=== PATIENT | female | born 1930 | race Caucasian/White ===

== ENCOUNTER 2017-05-08 13:38 | Inpatient (IN) | payer MEDICARE ==
[~2017-05-08] VITALS: Ht 157.5 cm; Wt 60.5 kg
--- NOTE | ~2017-05-08 | DS ---
PATIENT:MICHELLE ROBLES :34 MEDICAL RECORD: [id number] DISCHARGE SUMMARY ADMISSION DATE: 05/09/17 DISCHARGE DATE: 05/22/17 DATE OF ADMISSION: 05/09/2017 DATE OF DISCHARGE: 05/22/2017 HISTORY: First [facility] admission for this 86-year-old white female. She was transferred from [facility]. Originally, she had been admitted with respiratory infection, but began to exhibit disorientation and confusion. At the time of presentation, she showed global memory impairment and was oriented only to person. For further details, please see previously dictated history. COURSE IN THE HOSPITAL: The patient was seen in consultation by Dr. Joy. Dr. Joy noted the presence of hypertension, coronary artery disease, hypothyroidism, gastroesophageal reflux disease, diverticulosis, gout, degenerative joint disease, and vitamin B12 deficiency. MEDICATIONS: The patient was started on perphenazine 2 mg at bedtime for control of her agitation. She was also started on Aricept 5 mg at bedtime. She was also maintained on her nonpsychiatric medications. She was started on Megace 40 mg daily for appetite improvement. The patient showed gradual improvement in behavior, but remained confused. Decision was made to have the patient transferred to [facility]. She was discharged in stable condition. 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 AXIS II: No diagnosis. AXIS III: Hypothyroidism, gout, hypertension, coronary artery disease, vitamin B12 and folate deficiencies, and degenerative joint disease. AXIS IV: Moderate. AXIS V: 40. PLAN: 1. The patient is discharged on current medications. 2. Diet and activities as tolerated. 3. Follow up through [facility] physician. TRANSINT:[id number] Voice Confirmation ID: [id number] DOCUMENT ID: [id number] DEE NORMAN III, MD at 1341 CC: [id number] DICTATION DATE: 05/23/17 1219 HEALTHCARE CONSULTANT: 05/23/17 1228 DIS IN 05/22/[address] [id number]
--- NOTE | ~2017-05-08 | PN ---
PATIENT:MICHELLE ROBLES MEDICAL RECORD: [id number] LOCATION:[facility] ADMISSION DATE: 05/09/17 PROGRESS NOTE DATE OF SERVICE: 05/19/2017 SUBJECTIVE: The patient's case was discussed with staff. She has no new complaint. OBJECTIVE: The patient is in good behavioral control with limited insight about her condition. She tolerates her medicines well. ASSESSMENT: No change in diagnoses. PLAN: Brief supportive and educational interventions were made. [facility] prognosis is guarded. The patient did require p.r.n. medication yesterday, but is calmer today. She still tends to and become argumentative and difficult to redirect, but I am not sure I can address that pharmacologically. TRANSINT:[id number] Voice Confirmation ID: [id number] DOCUMENT ID: [id number] JARRED HENRY MD at 1445 CC: [id number] DICTATION DATE: 05/19/17 1333 TACK COVERER: 05/19/17 1349 ADM IN [place] [id number] [place] [id number]
--- NOTE | ~2017-05-08 | PN ---
PATIENT:MICHELLE ROBLES MEDICAL RECORD: [id number] LOCATION:[facility] ADMISSION DATE: 05/09/17 PROGRESS NOTE DATE OF SERVICE: 05/15/2017 SUBJECTIVE: No new complaint is noted. OBJECTIVE: The patient remains extremely confused. She has to be prompted to eat. She is cooperative, but is simply very distractible. She will be started on Aricept 5 mg daily, Megace has already been started. On exam, mood is pleasant. Affect is very distant. Speech is tangential and essentially nonsensical. Content of thought is negative for overt psychosis. Sensorium shows no improvement. ASSESSMENT: No change in diagnosis. PLAN: 1. Continue current treatment plan. 2. Continue supportive therapy. TRANSINT:[id number] Voice Confirmation ID: [id number] DOCUMENT ID: [id number] DEE NORMAN III, MD at 1021 CC: [id number] DICTATION DATE: 05/15/17 1141 SINKER WINDER: 05/15/17 1200 DIS IN 05/22/17 [place] [id number] [place] [address]
--- NOTE | ~2017-05-08 | PN ---
PATIENT:MICHELLE ROBLES MEDICAL RECORD: [id number] LOCATION:[facility] ADMISSION DATE: 05/09/17 PROGRESS NOTE DATE OF SERVICE: 05/17/2017 SUBJECTIVE: The patient's case was discussed with staff. She has no new complaint. OBJECTIVE: The patient is in good behavioral control with poor insight about her condition. She tolerates her medicines well. ASSESSMENT: No change in diagnoses. PLAN: Supportive and educational interventions were made. Care Home prognosis is guarded. TRANSINT:[id number] Voice Confirmation ID: [id number] DOCUMENT ID: [id number] JARRED HENRY MD at 1809 CC: [id number] DICTATION DATE: 05/17/17 1029 RN ONCOLOGY RESEARCH: 05/17/17 1121 ADM IN [place] [id number] [place] [address]
--- NOTE | ~2017-05-08 | PN ---
PATIENT:MICHELLE ROBLES MEDICAL RECORD: [id number] LOCATION:[facility] ADMISSION DATE: 05/09/17 PROGRESS NOTE DATE OF SERVICE: 05/22/2017 SUBJECTIVE: The patient's case was discussed with staff. She has no new complaint. OBJECTIVE: The patient is in good behavioral control with limited insight about her condition. She tolerates her medicines well. ASSESSMENT: No change in diagnoses. PLAN: Brief supportive and educational interventions were made. Snf prognosis is guarded. I anticipate she can be transitioned out of the hospital today. She shows no evidence of acute direct danger to herself or others. TRANSINT:[id number] Voice Confirmation ID: [id number] DOCUMENT ID: [id number] JARRED HENRY MD at 1403 CC: [id number] DICTATION DATE: 05/22/17 1323 SUPERVISOR CAP AND HAT PRODUCTION: 05/22/17 1338 DIS IN 05/22/17 [place] [id number] [place] [address]
--- NOTE | ~2017-05-08 | PN ---
PATIENT:MICHELLE ROBLES MEDICAL RECORD: [id number] LOCATION:[facility] ADMISSION DATE: 05/09/17 PROGRESS NOTE DATE OF SERVICE: 05/20/2017 SUBJECTIVE: The patient's case was discussed with staff. She has no new complaint. OBJECTIVE: The patient denies intent to harm herself or others. She generally tolerates her medicines well. She did have some active hallucinations last night, but she has no recollection of them. She is taking Trilafon, but has only had a couple of doses. ASSESSMENT: No change in diagnoses. PLAN: Current medicines have been reviewed and will be maintained. Long-term prognosis is guarded. TRANSINT:[id number] Voice Confirmation ID: [id number] DOCUMENT ID: [id number] JARRED HENRY MD at 1147 CC: [id number] DICTATION DATE: 05/20/17 1453 DYNAMITE CARTRIDGE CRIMPER: 05/20/17 1517 ADM IN [place] [id number] [place] [id number]
--- NOTE | ~2017-05-08 | PN ---
PATIENT:MICHELLE ROBLES MEDICAL RECORD: [id number] LOCATION:[facility] ADMISSION DATE: 05/09/17 PROGRESS NOTE DATE OF SERVICE: 05/16/2017 SUBJECTIVE: The patient's case was discussed with staff. She has no new complaint. OBJECTIVE: The patient is in good behavioral control with limited insight about her condition. She tolerates her medicines well. ASSESSMENT: No change in diagnoses. PLAN: Supportive and educational interventions were made. I anticipate the patient can be transitioned out of the hospital soon if this level of improvement is maintained. TRANSINT:[id number] Voice Confirmation ID: [id number] DOCUMENT ID: [id number] JARRED HENRY MD at 1921 CC: [id number] DICTATION DATE: 05/16/17 1405 MANUFACTURING QUALITY INSPECTOR: 05/16/17 1418 ADM IN [facility] [address] [place] [address]
--- NOTE | ~2017-05-08 | PN ---
PATIENT:MICHELLE ROBLES MEDICAL RECORD: [id number] LOCATION:[facility] ADMISSION DATE: 05/09/17 PROGRESS NOTE DATE OF SERVICE: 05/21/2017 SUBJECTIVE: The patient's case was discussed with staff. She has no new complaint. OBJECTIVE: The patient denies intent to harm herself or others. She generally tolerates her medicines well. ASSESSMENT: No change in diagnoses. PLAN: Supportive and educational interventions were made. [facility] prognosis is guarded. I anticipate she can be transitioned out of the hospital soon if this level of improvement is maintained and I am encouraged by the fact that she has had no further hallucinations today. TRANSINT:[id number] Voice Confirmation ID: [id number] DOCUMENT ID: [id number] JARRED HENRY MD at 1304 CC: [id number] DICTATION DATE: 05/21/17 1205 PRECISION LAYOUT WORKER: 05/21/17 1222 DIS IN 05/22/17 [place] [address] [place] [address]
--- NOTE | ~2017-05-08 | PN ---
PATIENT:MICHELLE ROBLES MEDICAL RECORD: [id number] LOCATION:[facility] ADMISSION DATE: 05/09/17 PROGRESS NOTE DATE OF SERVICE: 05/13/2017 SUBJECTIVE: No coherent complaint. OBJECTIVE: The patient continues to need close monitoring. Episodic agitation continues. The patient scored 6/[address] [facility] Mental Status exam, which indicates very profound level of dementia. On exam, mood is somewhat irritable. Affect is constricted. Speech is nonsensical. Content of thought is unchanged. Sensorium unchanged. ASSESSMENT: No change in diagnosis. PLAN: 1. Maintain current medication. 2. Continue supportive therapy. TRANSINT:[id number] Voice Confirmation ID: [id number] DOCUMENT ID: [id number] DEE NORMAN III, MD at 1040 CC: [id number] DICTATION DATE: 05/13/17 1229 SUPPLY CHAIN DEVELOPMENT MANAGER: 05/13/17 1234 ADM IN [place] [id number] [place] [address]
--- NOTE | ~2017-05-08 | PN ---
PATIENT:MICHELLE ROBLES MEDICAL RECORD: [id number] LOCATION:[facility] ADMISSION DATE: 05/09/17 PROGRESS NOTE DATE OF SERVICE: 05/14/2017 SUBJECTIVE: No new complaint. OBJECTIVE: The patient remains extremely confused. She is very easily distractible and has to be reminded to do simple things such as eat. On exam, mood seems a little anxious. Affect is slightly brittle. Speech is tangential and rambling. Content of thought is negative for overt psychosis. Sensorium shows no change. ASSESSMENT: No change in diagnosis. PLAN: 1. Maintain current medication. 2. Continue supportive therapy. TRANSINT:[id number] Voice Confirmation ID: [id number] DOCUMENT ID: [id number] DEE NORMAN III, MD at 2048 CC: [id number] DICTATION DATE: 05/14/17 1121 RESIDENTIAL DOOR UNIT INSTALLER: 05/14/17 1226 ADM IN [place] [id number] [place] [address]
--- NOTE | ~2017-05-08 | PN ---
PATIENT:MICHELLE ROBLES MEDICAL RECORD: [id number] LOCATION:[facility] ADMISSION DATE: 05/09/17 PROGRESS NOTE DATE OF SERVICE: 05/12/2017 SUBJECTIVE: No new complaint. OBJECTIVE: The patient remains extremely confused. She became agitated last night and did require p.r.n. of Haldol and Ativan. This morning, she is much more constricted. Appetite has been poor. On exam, mood is euthymic. Affect very constricted. Speech is terse. Content of thought negative for overt psychosis. Sensorium shows no change. ASSESSMENT: No change in diagnosis. PLAN: 1. Continue all current medication. 2. Continue supportive therapy. TRANSINT:[id number] Voice Confirmation ID: [id number] DOCUMENT ID: [id number] DEE NORMAN III, MD at 1105 CC: [id number] DICTATION DATE: 05/12/17 1156 OIL BURNER REPAIRER: 05/12/17 1209 ADM IN [place] [id number] [place] [id number]
--- NOTE | ~2017-05-08 | PSY ---
PATIENT NAME:MICHELLE ROBLES MEDICAL RECORD: [id number] : 34 LOCATION:[facility] ADMISSION DATE: 05/09/17 ACCOUNT: [id number] PSYCHIATRIC EVALUATION DATE OF EVALUATION: 05/10/17 IDENTIFYING DATA: This is the first [facility] admission for this 86-year-old white female. HISTORY OF PRESENT ILLNESS: This patient was originally admitted to [facility] several days ago. At that time, she was having respiratory infection. She was found to be confused and disoriented when she was stabilized medically. A request was made for transfer to [facility] for further evaluation. The patient is showing global memory impairment. She is oriented only to person. The patient believes that she is 66-year-old. Because of worsening dementia, the patient was admitted. PAST MEDICAL HISTORY: Significant for hypertension, hypothyroidism, gastroesophageal reflux disease, coronary artery disease, degenerative joint disease, gout, vitamin B12, and folate deficiency. ALLERGIES: LISTED SULFONAMIDE ANTIBIOTICS, PENICILLINS, AND CODEINE. FAMILY HISTORY: Noncontributory. SOCIAL HISTORY: Information is not currently available. The patient denies substance abuse. MEDICATION: At the time of admission include Seroquel 25 mg at bedtime, Norvasc 10 mg daily, Pepcid 20 mg b.i.d., folic acid 1 mg daily, isosorbide mononitrate 30 mg daily, levothyroxine 100 mcg daily, and Megace 40 mg daily. MENTAL STATUS: On interview, the patient is pleasant, but quite confused. Mood is somewhat anxious. Affect is brittle. Speech is tangential and circular. Content of thought is positive for delusional ideation based on profound sensorium deficits. On sensorium examination, the patient is oriented only to person. She shows global memory impairment. DIAGNOSTIC IMPRESSION: AXIS I: Alzheimer dementia with behavioral disturbance. AXIS II: No diagnosis. AXIS III: Hypothyroidism, gout, hypertension, coronary artery disease, vitamin B12 and folate deficiency, degenerative joint disease. AXIS IV: Moderate. AXIS V: 36. PLAN: 1. The patient is admitted for further medical and psychiatric workup. 2. Diet and activities as tolerated. 3. Daily supportive therapy. TRANSINT:[id number] Voice Confirmation ID: [id number] DOCUMENT ID: [id number] EMERSON BOOGIE, DEE Gallagher MD at 2057 CC: [id number] DICTATION DATE: 05/10/17 1151 LIVE IN HOUSEKEEPER: 05/10/17 1220 ADM IN [facility] [address] [place] [id number]
[2017-05-08] MEDS ORDERED: NORVASC10 MG PO (15:24)
[2017-05-08] MEDS ORDERED: FOLIC ACID1 MG PO (15:25)
[2017-05-08] MEDS ORDERED: PEPCID20 MG PO (15:25)
[2017-05-08] MEDS ORDERED: ISOSORBIDE MONO30 M1 PO (15:26)
[2017-05-08] MEDS ORDERED: SYNTHROID100 MCG PO (15:27)
[2017-05-08] MEDS ORDERED: SEROQUEL25 MG PO (15:28)
[2017-05-09] MEDS ORDERED: MEGACE40 MG PO (16:20)
[2017-05-09 20:46] VITALS: BP 117/83; BMI 24.4
[2017-05-09 20:52] VITALS: BP 140/57
[2017-05-10 08:01] LABS: BASOPHILS 0.5 % (0-2); EOSINOPHILS 1.5 % (0-7); HEMATOCRIT 32.4 % (36.0-48.0); HEMOGLOBIN 11.2 g/dL (12-16); IMMATURE GRANULOCYTES 0.2 % (0-5); LYMPHOCYTES 32.2 % (15-50); MCH 31.4 pg (26.0-34.0); MCHC 34.6 g/dL (31.0-37.0); MCV 90.8 fL (80.0-100.0); MONOCYTES 8.8 % (2-11); NEUTROPHILS 56.8 % (40-80); PLATELET COUNT 110 10x3/uL (130-400); RBC 3.57 10x6/uL (4.00-5.40); RDW 13.4 % (11.5-14.5); WBC 5.9 10x3/uL (4.8-10.8)
[2017-05-10 08:23] LABS: ALBUMIN 3.5 g/dL (3.4-5.0); ANION GAP 15.1 mmol/L (8-16); BILIRUBIN - TOTAL 1.52 mg/dL (0.2-1.3); CALCIUM 9.7 mg/dL (8.5-10.1); CARBON DIOXIDE 23.9 mmol/L (21.0-32.0); CHOL - HDL RATIO 2.6 ratio (2.3-4.1); CREATININE - SERUM 1.8 mg/dL (0.6-1.3); LDL-HDL RATIO 1.2 ratio (1.5-3.5); PROTEIN - SERUM 6.4 g/dL (6.4-8.2); THYROID STIMULATING HORMONE 0.2 uIU/mL (0.36-3.74)
[2017-05-10 10:50] VITALS: BP 124/70
[2017-05-10 14:33] LABS: APPEARANCE CLEAR (CLEAR); BILIRUBIN NEGATIVE (NEGATIVE); COLOR YELLOW (YELLOW); GLUCOSE NEGATIVE (NEGATIVE); KETONE NEGATIVE (NEGATIVE); NITRITE NEGATIVE (NEGATIVE); PROTEIN NEGATIVE (NEGATIVE); UROBILINOGEN NORMAL (NORMAL)
[2017-05-10 14:36] LABS: BACTERIA MODERATE /hpf (NONE SEEN); EPITHELIAL CELLS 0-5 /hpf (0-5)
[2017-05-10 20:33] VITALS: BP 117/60
[2017-05-11 07:00] VITALS: BP 161/62
[2017-05-11 19:30] VITALS: BP 162/68
[2017-05-12 07:00] VITALS: BP 136/41
[2017-05-12 12:11] LABS: FOLATE (FOLIC ACID) - SERUM >20.0 ng/mL (>3.0)
[2017-05-12 13:13] LABS: VITAMIN D 25 HYDROXY 196.8 ng/mL (30.0-100.0)
[2017-05-12 14:23] VITALS: BMI 24.3
[2017-05-12 19:43] VITALS: BP 113/63
[2017-05-13 03:10] LABS: RAPID PLASMA REAGIN Non Reactive (Non Reactive)
[2017-05-13 07:00] VITALS: BP 118/64
[2017-05-13 21:09] VITALS: BP 100/43
[2017-05-14 11:11] VITALS: BP 141/68
[2017-05-14 12:02] VITALS: BP 141/68
[2017-05-15 02:12] VITALS: BP 124/65
[2017-05-15 10:08] VITALS: BP 118/64
[2017-05-15 19:16] VITALS: BP 136/68
[2017-05-16 09:47] VITALS: BP 123/71
[2017-05-16 10:36] VITALS: Ht 157.5 cm; Wt 60.5 kg
[2017-05-16 19:55] VITALS: BP 128/69
[2017-05-17 08:06] VITALS: BP 105/62
[2017-05-17 09:48] VITALS: BP 105/62
[2017-05-17 19:15] VITALS: BP 137/68
[2017-05-18 07:00] VITALS: BP 109/58
[2017-05-18 18:56] VITALS: BP 175/84
[2017-05-19 07:00] VITALS: BP 124/69
[2017-05-19 20:19] VITALS: BP 161/73
[2017-05-20 07:40] VITALS: BP 135/61
[2017-05-20 19:30] VITALS: BP 139/64
[2017-05-21 07:55] VITALS: BP 131/60
[2017-05-21 20:48] VITALS: BP 128/69
[2017-05-22 08:11] VITALS: BP 137/68
[2017-05-22] MEDS ORDERED: ARICEPT5 MG PO (11:43)
[2017-05-22] MEDS ORDERED: PERPHENAZINE2 MG PO (11:43)
== END 2017-05-22 12:10 | DRG 57 ==
LOC: D.PSYCH 13:38
PROVIDERS: Psychiatry & Neurology Psychiatry
DX: G30.9 Alzheimer's disease, unspecified (principal); F02.81 Dementia in other diseases classified elsewhere, unspecified severity, with behavioral disturbance; E03.9 Hypothyroidism, unspecified; M10.9 Gout, unspecified; K57.90 Diverticulosis of intestine, part unspecified, without perforation or abscess without bleeding; K21.9 Gastro-esophageal reflux disease without esophagitis; I10 Essential (primary) hypertension; I25.10 Atherosclerotic heart disease of native coronary artery without angina pectoris; E53.8 Deficiency of other specified B group vitamins; M19.90 Unspecified osteoarthritis, unspecified site